=== PATIENT | female | born 1985 | race Two or more races ===

== ENCOUNTER 2017-06-21 07:03 | Inpatient (IN) | payer OTHER ==
[~2017-06-21] VITALS: Ht 162.6 cm; Wt 83.5 kg
[2017-06-21] MEDS ORDERED: ONDA8TAB1 PO (08:29)
[2017-06-21] MEDS ORDERED: TRAM50TA1 PO (08:29)
[2017-06-21] MEDS ORDERED: BUPIVACAINE-MPF 0.25% 30 ML VIAL INJ ONE (10:48)
[2017-06-21] MEDS ORDERED: PROPOFOL 200 MG/20 ML VIAL IV ONE (11:01)
[2017-06-21] MEDS ORDERED: DESFLURANE 240 ML BTL INH ONE (11:01)
[2017-06-21] MEDS ORDERED: LIDOCAINE 2% 100 MG/5 ML SYR IVP ONE (11:01)
[2017-06-21] MEDS ORDERED: GLYCOPYRROLATE 0.2 MG/ML VIAL ONE (11:01)
[2017-06-21] MEDS ORDERED: NEOSTIGMINE 1:1000 10 MG/10 ML VIAL ONE (11:01)
[2017-06-21] MEDS ORDERED: DEXAMETHASONE 4 MG/ML VIAL ONE (11:01)
[2017-06-21] MEDS ORDERED: ONDANSETRON 4 MG/2 ML VIAL ONE (11:01)
[2017-06-21] MEDS ORDERED: fentaNYL 0.05 MG/ML VIAL ONE ×2 (11:03→13:18)
[2017-06-21] MEDS ORDERED: MIDAZOLAM 2 MG/2 ML VIAL ONE (11:03)
[2017-06-21] MEDS ORDERED: ONDANSETRON 4 MG/2 ML VIAL IVP PRN (11:30)
[2017-06-21] MEDS ORDERED: HYDROmorphone PFS 2 MG/ML SYR IVP PRN ×2 (11:30→15:05)
[2017-06-21] MEDS: HYDROmorphone PFS 2 MG/ML SYR ONE ×6 (14:10→15:00)
[2017-06-21] MEDS ORDERED: MORPHINE SULFATE 4 MG/ML SYR IV PRN (14:15)
[2017-06-21] MEDS ORDERED: KETOROLAC 30 MG/ML VIAL ONE (14:57)
[2017-06-21] MEDS ORDERED: KETOROLAC 30 MG/ML VIAL IVP SCH (15:23)
--- NOTE | 2017-06-21 15:30 | NUR ---
PT ARRIVED ON THE UNIT WITH 2 OR NURSES. PT IS AWAKE AND ORIENTED. ACCOMPANIED BY SPOUSE. INTRODUCED MYSELF AND UPDATED THE BOARD. PER PT, PT IS IN A LOT OF PAIN. PER RONALD, OR NURSE PT HAD 6 DOSES OF DILAUDID. NO MORE, LET IT TAKE AFFECT. V/S STABLE. WILL CONTINUE WITH POST OP V/S. SKIN- 4 INCISIONS COVERED W/ DRESSING. WAQAS DRAIN, DRAINING SANGUINOUS 3ML IN BULB. FAMILY AT BEDSIDE. PT THIRSTY, GAVE ICE CHIPS AND APPLE JUICE. WILL CONTINUE TO MONITOR PT.
[2017-06-21 16:00] VITALS: BP 105/58
[2017-06-21 16:15] VITALS: BP 108/74
--- NOTE | 2017-06-21 16:22 | NUR ---
PT V/S GOOD. WHEN PT FALLS ASLEEP, O2 SAT DROPS FROM 98% TO 78-80%. ADMINISTERED NC 3L. WILL CONTINUE TO MONITOR PT.
[2017-06-21 16:45] VITALS: BP 111/70
[2017-06-21] MEDS: NACL 0.9% 1,000 ML IV SCH (16:59)
[2017-06-21] MEDS: ONDANSETRON 4 MG/2 ML VIAL IV PRN (17:00)
[2017-06-21 17:15] VITALS: BP 110/71
--- NOTE | 2017-06-21 18:52 | NUR ---
PT C/O PAIN. CAN'T REALLY EXPLAIN BUT SHE SAYS IT FEELS LIKE STOMACH AND HER HEART IS SLOWLY "CLOSING DOWN". SHE SAYS IT'S HARD TO BREATHE. HER O2 SAT IS 100% ON 4L OF O2. HER VITAL SIGNS IS NORMAL. WAQAS DRAIN IS DRAINING WELL. I WILL EMPTY BEFORE SHIFT IS OVER. FAMILY IS WITH HER. ASKED THEM TO LEAVE TO LET HER REST. COME BACK TOMORROW.
--- NOTE | 2017-06-21 19:30 | NUR ---
RECEIVED BEDSIDE REPORT FROM DAY SHIFT NURSE PERLA RN, PT STABLE, NO DISTRESS NOTED, IV TO R AC 20 G RUNNING NS @ 100 ML/HR, DRESSING CLEAN DRY AND INTACT, WAQAS DRAIN DRAINING SEROSANGUINOUS, PT ON 4LPM O2 VIA NC, INITIAL ASSESSMENT DONE, ALL SAFETY PRECAUTION MET, CALL LIGHT WITHIN REACH, FAMILY BY BEDSIDE, WILL CONTINUE TO MONITOR.
--- NOTE | 2017-06-21 20:47 | NUR ---
PT AMBULATES TO THE RESTROOM, TOLERATED WELL, BUT WAS UNABLE TO VOID, PT WENT BACK TO BED, RESTING, CALL LIGHT WITHIN REACH, STABLE, CALL LIGHT WITHIN REACH.
[2017-06-21] MEDS: MORPHINE SULFATE 2 MG/ML SYR IVP PRN (23:30)
[2017-06-22] VITALS: BP 110/68
[2017-06-22] MEDS: NACL 0.9% 1,000 ML IV SCH (00:13)
[2017-06-22] MEDS: HYDROmorphone PFS 2 MG/ML SYR IVP PRN ×4 (03:18→18:08)
--- NOTE | 2017-06-22 03:18 | NUR ---
PT C/O OF PAIN 10/10 ON THE ABD, PAIN MEDICATION GIVEN, PT TOLERATED WELL, NO DISTRESS NOTED, CALL LIGHT WITHIN REACH, WILL CONTINUE TO MONITOR.
[2017-06-22 08:00] VITALS: BP 110/72
[2017-06-22 10:54] LABS: ALBUMIN 2.9 g/dL (3.4-5.0); ANION GAP 14.7 (8-16); CARBON DIOXIDE 22.4 mmol/L (21-32); CREATININE 0.7 mg/dL (0.6-1.3); POTASSIUM 4.1 mmol/L (3.5-5.1)
[2017-06-22 13:51] LABS: HEMOGLOBIN 13.1 g/dL (12.0-16.0); RED BLOOD CELL COUNT(AUTO) 4.51 MIL/uL (4.20-5.40); WHITE BLOOD COUNT (AUTO) 13.3 K/uL (4.8-10.8)
[2017-06-22 13:52] LABS: MEAN CORPUSCULAR HEMOGLOBIN 29 pg (27-31); MEAN CORPUSCULAR HGB CONC 33 g/dL (33-37); MEAN CORPUSCULAR VOLUME 89 fL (80-94); PLATELET COUNT (AUTO) 275 K/uL (140-450); RED CELL DISTRIBUTION WIDTH 12.4 % (11.6-13.7)
[2017-06-22 13:53] LABS: LYMPHOCYTES % (MANUAL) 14 % (20-46); MONOCYTES % (MANUAL) 7 % (5-12)
--- NOTE | 2017-06-22 13:55 | NUR ---
Due to inconsistent information that patient give me during screen and patient stating that he did not have a place to live. I contact patient's board and care at [facility] (assisted living). I Spoke to Roselyn (facility staff) about patient information. According to Roselyn the facility its just a board and care that can provide a clean room, 3 meals a day, and assist residents with providing them, with medications management but its only limited and can not provide any higher level of care for the residents that are in that need. Per Roselyn patient has been in and out of the hospitals and last time patient discharged he appeared as if he had walk out of hospital with IV and tubes still as of (Patient had run away from the hospital). Per Roselyn he is ill and seems as he is in need of a higher level of care, that they are not able to provide. Per Roselyn they no longer want patient to return and if he do go back they will bring patient back to the hospital. I explained to Roselyn that social work and case management will make every attempt to assist patient with level of care that he needs, however in his case patient may be limited with options and he also has the right to accept or declined the help. I assure that resources and services will be provided for patient to get the assistance he needs. Roselyn agreed and ended call.
[2017-06-22] MEDS ORDERED: HYDROmorphone PFS 2 MG/ML SYR ONE ×2 (14:37→18:02)
--- NOTE | 2017-06-22 14:42 | NUR ---
CM NOTE COMPUTER AND PHONE LINES WERE DOWN. WRITTEN CLINICAL UPDATE FAXED TO [facility] [phone] MARQUITA # [phone].
[2017-06-22 16:00] VITALS: BP 116/68
--- NOTE | 2017-06-22 19:10 | NUR ---
ENDORSED PATIENT TO MACHINE BUFFER RN FOR CONTINUITY OF CARE. PATIENT IN STABLE CONDITION.
--- NOTE | 2017-06-22 19:11 | NUR ---
RECEIVED REPORT FROM DAY NURSE, PT IN STABLE CONDITION. NO S/S OF DISTRESS NOTED. PT AAOX4, ON 4L O2 VIA NC, IV TO R AC 20G, PATENT AND INTACT. PT HAS 4 INCISIONS ON THE ABD AREA, DRESSINGS DRY AND INTACT. WAQAS DRAINING SEROSANGUINEOUS DRAINAGE. INITIAL ASSESSMENT COMPLETED. PLAN OF CARE DISCUSSED WITH PT AT THE BEDSIDE, BOARD UPDATED, VERBALIZED UNDERSTANDING. ALL SAFETY PRECAUTIONS MET, CALL LIGHT WITHIN REACH, WILL CONTINUE TO MONITOR.
[2017-06-22 20:00] VITALS: BP 108/68
--- NOTE | 2017-06-22 21:45 | NUR ---
PT C/O ITCHINESS AROUND WAQAS DRAIN SITE, TOOK OFF DRESSING, NO REDNESS OR SWELLING NOTED. SITE DRY, CLEAN AND INTACT. SMALL AMOUNT OF SEROSANGUINEOUS DRAINAGE NOTED ON DRESSING. DRESSING CHANGED. PT TOLERATED WELL AND STATED IT FEELS BETTER NOW
[2017-06-22] MEDS ORDERED: MORPHINE SULFATE 2 MG/ML SYR ONE (22:30)
[2017-06-22] MEDS ORDERED: ONDANSETRON 4 MG/2 ML VIAL ONE (22:30)
[2017-06-22] MEDS: ONDANSETRON 4 MG/2 ML VIAL IV PRN (22:37)
[2017-06-22] MEDS: MORPHINE SULFATE 2 MG/ML SYR IVP PRN (22:37)
[2017-06-23] MEDS ORDERED: HYDROmorphone PFS 2 MG/ML SYR ONE (03:49)
[2017-06-23] MEDS: HYDROmorphone PFS 2 MG/ML SYR IVP PRN (04:01)
--- NOTE | 2017-06-23 06:09 | NUR ---
OUTPUT FROM WAQAS DRAIN 20 ML SEROSANGUINEOUS FLUID
[2017-06-23] MEDS: NACL 0.9% 1,000 ML IV SCH (06:13)
--- NOTE | 2017-06-23 07:05 | NUR ---
PT C/O OXYGEN MAKING HER NOSE FEEL DRY, PT DOES NOT WANT OXYGEN ON. 02 SAT:96% ON ROOM AIR, GAVE PT LUBRICANT JELLY FOR NOSE AND WARM COMPRESS FOR ABDOMEN
--- NOTE | 2017-06-23 07:43 | NUR ---
RECEIVED REPORT FROM TICKER INSTALLER RN. PATIENT IS AAOX4, RESPIRATORY EFFORT IS EVEN AND UNLABORED. PATIENT IS ON ROOM AIR. NO SIGNS AND SYMPTOMS OF ACUTE DISTRESS NOTED AT THIS TIME. HAS IV TO RIGHT AC 20G SALINE LOCK AT THIS TIME. SITE IS CLEAN, DRY, PATENT AND INTACT. HAS URBINA CATHETER DRAINING TO GRAVITY. HAS FOUR ABDOMINAL INCISIONS, SITES HAVE DRESSINGS, CLEAN, DRY AND INTACT. HAS WAQAS DRAIN, SMALL AMOUNT OF SEROSANGUINEOUS FLUID NOTED. DISCUSSED PLAN OF CARE WITH PATIENT AND SHE VERBALIZED UNDERSTANDING. BED IN LOWEST POSITION, SIDE RAILS UP X2, CALL LIGHT PLACED WITHIN REACH. WILL CONTINUE TO MONITOR.
--- NOTE | 2017-06-23 07:43 | NUR ---
REPORT GIVEN TO DAY NURSE FOR CONTINUITY OF CARE, PT IN STABLE CONDITION. NO S/S OF OF DISTRESS NOTED.
[2017-06-23 08:00] VITALS: BP 98/59
--- NOTE | 2017-06-23 08:59 | NUR ---
PATIENT HAS BEEN SCREENED AND CATEGORIZED LOW NUTRITION RISK. PATIENT WILL BE SEEN WITHIN 7 DAYS OF ADMISSION. 06/27/[address]
[2017-06-23] MEDS: ENOXAPARIN 40 MG/0.4 ML SYR SUBQ SCH (09:00)
--- NOTE | 2017-06-23 10:00 | NUR ---
REMOVED URBINA CATHETER PER ORDER. EKG, TROPONIN ALSO ORDERED
--- NOTE | 2017-06-23 11:36 | NUR ---
DR BAILEY ORDERED TO DO A BLADDER SCAN POST VOID, IF BLADDER IS 250 ML OR MORE TO DO A STRAIGHT CATH EVERY 4 HOURS. WILL FOLLOW THROUGH WITH ORDERS.
--- NOTE | 2017-06-23 11:40 | NUR ---
DR RUIZ STUDENT SURGEONS CAME AND TALKED TO ME STATING THAT PER DR KING'S STANDPOINT PATIENT IS READY TO GO HOME. WILL AWAIT ANY ORDERS.
--- NOTE | 2017-06-23 12:00 | NUR ---
ENCOURAGING PATIENT TO AMBULATE. TO GO AND SIT ON THE TOILET TO TRY TO EMPTY HER BLADDER. SHE STATES THAT SHE WANTS TO BUT DOESN'T FEEL LIKE ANYTHING WILL COME OUT.
--- NOTE | 2017-06-23 12:01 | NUR ---
CM NOTE CONCURRENT REVIEW FAXED TO [facility] [phone] MARQUITA # [phone].
--- NOTE | 2017-06-23 12:50 | NUR ---
GAVE PATIENT DILAUDID, 0.5ML, IV AND FLUSHED. WILL CONTINUE TO MONITOR.
--- NOTE | 2017-06-23 14:10 | NUR ---
AT THE BEDSIDE, REMOVED WAQAS DRAIN. PATIENT STATED SHE HAD SOME PAIN. WILL CONTINUE TO MONITOR.
--- NOTE | 2017-06-23 15:10 | NUR ---
ENCOURAGED PATIENT TO GET UP AND AMBULATE. ALSO TO SIT ON THE TOILET. PATIENT GOT UP FROM BED AND AMBULATED WITH FAMILY AND CHARGE NURSE.
[2017-06-23 16:00] VITALS: BP 104/69
--- NOTE | 2017-06-23 16:30 | NUR ---
PATIENT AMBULATING DOWN THE HALLWAY WITH FAMILY. TOLERATING WELL.
--- NOTE | 2017-06-23 17:23 | NUR ---
ASKED PATIENT HOW SHE WAS FEELING, SHE SAID OK, THAT SHE HAS SOME PAIN. ASKED IF SHE IS READY TO GO HOME, SHE STATED THAT SHE IS STILL HAVING A HARD TIME TRYING TO EAT, AND FEELS BLOATED. WILL CONTINUE TO MONITOR.
[2017-06-23] MEDS: HYDROcodone/APAP 5/325 MG 1 TAB TAB PO PRN ×2 (17:54→22:07)
[2017-06-23] MEDS: ONDANSETRON 4 MG/2 ML VIAL IV PRN (17:54)
[2017-06-23] MEDS ORDERED: PANTOPRAZOLE 40 MG INJ VIAL IVP SCH (18:25)
--- NOTE | 2017-06-23 19:20 | NUR ---
PATIENT IS CURRENTLY AWAKE ALERT RESTING IN BED IVF NOT INFUSING AT THIS TIME BUT WAS RECONNECTED AGAIN TO IVF BY AM SHIFT NURSE. PATIENT HAS TOTAL OF 4 ABD INCISIONS 3 COVERED WITH BANDAIDS AND THE OTHER ONE WAS COVERED WITH A 4X4 GAUZE, PATIENT HAS NO MORE WAQAS IT HAS BEEN REMOVED. PATIENT ENCOURAGED TO WALK AND ENCOURAGED TO DRINK PLENTY OF FLUIDS.PATIENT VERBALIZES UNDERSTANDING PATIENT STATES,"I HAVE BEEN WALKING IN THE MORNING." PATIENT ENCOURAGED TO WALK SHE CAN TOLERATED ONLY.PATIENT VERBALIZES UNDERSTANDING. PATIENT HAS SCD'S OFF AT THIS TIME BUT I WILL PUT THEM ON LATER. PATIENT IS AWARE THAT A NEW IV HAS TO BE RESTARTED.PATIENT HAS NO COMPLAINS OF PAIN OR NAUSEA PATIENT STATES SHE ONLY HAS SOME PAIN WHEN URINATING BUT I WILL GIVE HER CRANBERRY JUICE AND WILL CHECK THE PATIENT WITH BLADDER SCANNER IF SHE FEELS SHE IS RETAINING URINE. CALL LIGHT WITHIN REACH WILL CONTINUE TO MONITOR.
--- NOTE | 2017-06-23 19:20 | NUR ---
ENDORSED PATIENT TO CENTRIFUGAL DRIER OPERATOR NURSE FOR CONTINUITY OF CARE. PATIENT IN STABLE CONDITION.
[2017-06-23 20:00] VITALS: BP 104/60
--- NOTE | 2017-06-23 20:00 | NUR ---
Patient's Plan of Care was discussed and reviewed with CUSTOMS AND IMMIGRATION OFFICER: CATIE NOLAND
--- NOTE | 2017-06-23 20:03 | NUR ---
PATIENT AGREES TO HAVE A NEW IV LINE RESTARTED. I ATTEMPTED TO RESTART AN IV LINE TO HER RT FOREARM BUT PATIENT IS SO ANXIOUS I GOT GOOD BLOOD RETURN AND NORMAL SALINE IS FLUSHING WELL, BUT PATIENT IS SAYING,"PLEASE TAKE IT OFF IT HURTS PLEASE REMOVE IT." SO I WENT AHEAD AND I REMOVED THE IV LINE. THEN PATIENT STATES,"I DON'T WANT ANY MORE IV LINE." I EXPLAINED TO THE PATIENT THE REASON SHE NEEDS TO HAVE AN IV ACCESS AND ALSO SO SHE CAN GET IV MEDICATION IF SHE NEEDS IT.PATIENT STATES,"THAT'S OK I WILL CONTINUE TO DRINK PLENTY OF FLUIDS AND I WILL TAKE THE PAIN PILL FOR PAIN." PATIENT REFUSES IV REINSERTION. I TOLD THE PATIENT THAT IF SHE CHANGES HER MIND I CAN RESTART HER IV LINE AGAIN. PATIENT VERBALIZES UNDERSTANDING BUT,FOR NOW PATIENT REFUSED IV REINSERTION.
--- NOTE | 2017-06-23 22:07 | NUR ---
PATIENT IS CURRENTLY COMPLAINING OF PAIN WAS MEDICATED FOR MODERATE PAIN. PATIENT IS CURRENTLY RESTING IN BED AND ALSO REQUESTED TO HAVE WARM BLANKETS.PATIENT NEEDS MET WILL CONTINUE TO MONITOR.
[2017-06-24 00:34] VITALS: BP 96/56
--- NOTE | 2017-06-24 00:38 | NUR ---
PATIENT IS CURRENTLY RESTING IN BED DENIES PAIN VITALS TAKEN CURRENTLY WNL. PATIENT IS WEARING SCD'S TO PREVENT DVT AND EDUCATION GIVEN TO THE PATIENT AND SHE VERBALIZES UNDERSTANDING. CALL LIGHT WITHIN REACH.
[2017-06-24] MEDS: NACL 0.9% 1,000 ML IV SCH ×2 (01:18→01:36)
--- NOTE | 2017-06-24 02:44 | NUR ---
PATIENT SLEEPING WELL IN BED WILL CONTINUE TO MONITOR.
--- NOTE | 2017-06-24 04:40 | NUR ---
PATIENT IS CURRENTLY RESTING IN BED PATIENT CONTINUES TO BE ENCOURAGED TO DRINK FLUIDS AND CRANBERRY JUICE. PATIENT STATES,"I HAVE BEEN VOIDING BUT I'M IN PAIN." I CHECKED THE PATIENT WITH THE BLADDER SCANNER AND I SCANNED HER BLADER AND THE MOST IT SHOWS IS 34ML I SCANNED IN DIFFERENT ANGLES. NUTRITION PARTNERBRTET SINCLAIR WITNESSED WHEN I WAS SCANNING HER BLADDER AND SAW THAT PATIENT ISN'T RETAINING A LOT OF URINE IN HER BLADDER SO SUSY WEST WENT AHEAD AND PALPATED THE PATIENT'S BLADDER AND SAID IT WAS SOFT. PAIN MEDICATION NOT AVAILABLE IN EITHER UNIT FIRE BOAT ENGINEER PRANAV INFORMED HE SAID HE WILL BRING THE MEDICATION [place]. WILL CONTINUE TO MONITOR.
[2017-06-24] MEDS ORDERED: HYDROcodone/APAP 5/325 MG 1 TAB TAB ONE (04:55)
[2017-06-24] MEDS: HYDROcodone/APAP 5/325 MG 1 TAB TAB PO PRN ×4 (05:25→20:16)
[2017-06-24] MEDS ORDERED: PANTOPRAZOLE 40 MG TABEC PO SCH (06:30)
--- NOTE | 2017-06-24 06:37 | NUR ---
PATIENT SLEEPING IN NO DISTRESS. CALL LIGHT WITHIN REACH.
--- NOTE | 2017-06-24 07:27 | NUR ---
PATIENT STABLE SLEEPING REPORT ENDORSED TO SUSY ELDER AT BEDSIDE SHE WILL RESUME CARE.
--- NOTE | 2017-06-24 07:45 | NUR ---
PT RECEIVED FROM [facility] NURSE, PT IN BED AWAKE ALERT AND ORIENTED X4. ABLE TO MAKE NEEDS KNOWN WELL. NO RESP DISTRESS NOTED. PT C/O ABD PAIN 9/10 WITH MOVEMENT. PT RECEIVED NORCO AT 0525 AND SHE IS NOT DUE FOR PAIN MED AGAIN TILL 924. PT HAS NO IV ACCESS. OFFERED TO PLACE A NEW IV FOR HER SO THAT SHE CAN RECEIVED IVP PAIN MED BUT SHE IS NOT SURE IF SHE WANTS A NEW IV. PT STATES THAT IS WILL AGREE TO IV ACCESS ONLY IN THE AC. ABD INCISIONS REMAINS INTACT. NO BLEEDING OR OLD BLOOD STAIN PRESENT. V/S STABLE.
[2017-06-24 08:00] VITALS: BP 110/69
[2017-06-24] MEDS: ENOXAPARIN 40 MG/0.4 ML SYR SUBQ SCH (08:30)
--- NOTE | 2017-06-24 08:49 | NUR ---
PT HAS BEEN SCREENED AND CATEGORIZED MODERATE NUTIRITON RISK. PT WILL BE SEEN WITHIN 3-5 DAYS OF ADMISSION. 06/24/17-06/26/[address]
--- NOTE | 2017-06-24 10:55 | NUR ---
NORCO 1 TAB PO GIVEN FOR ABD PAIN 02/20. PT IN BED SLEEPING CALMLY. NO ACUTE DISTRESS OR CONDITION NOTED.
[2017-06-24] MEDS ORDERED: ACET-5629 PO (13:01)
--- NOTE | 2017-06-24 13:37 | NUR ---
CM NOTE CONCURRENT REVIEW FAXED TO [facility] [phone] MARQUITA # [phone].
--- NOTE | 2017-06-24 15:24 | NUR ---
PT IN BED SLEEPING COMFORTABLY. ABLE TO AROUSE VIA NAME. ORDERS TO DC HOME ENTERED IN THE COMPUTER. PT STATES THAT HER WORKS IN [place] AND HE DETS OFF AT 1900. PT HAS NO OTHER RIDE BESIDE HER . NO DISTRESS NOTED. PT STATES THAT USUALLY HAVE CONSTIPATION. SHE HSD NOT HAD A BM SINCE ADMISSION. PRUNE JUICE OFFERED. V/S STABLE.
--- NOTE | 2017-06-24 16:19 | NUR ---
NORCO 1 TAB PO GIVEN FOR ABD INCISIONAL PAIN 02/20. PT IS GIVEN IS AND EDUCATED ON HOW TO USE IT AND THE IMPORTANCE OF USING IT. PT IS VERY GUARDED. PT IS ABLE TO USE IS UP TO 1000ML. PT IS ENCOURAGED TO AMBULATE MORE IN THE HALLWAY AND SIT UP IN THE CHAIR TO PREVENT PNEUMONIA. EDUCATION ON S/S OF INFECTION, F/U WITH MD, TAKING DAILY SHOWERS INSTRUCTED BY DR KING, TAKING PAIN MED NEEDED PER PRESCRIPTION, TO RETURN TO ED IF SIGNS OF INFECTION OR SOB OCCURS. VERBAL UNDERSTANDING RECEIVED BACK FROM PT.
[2017-06-24 18:16] VITALS: BP 118/72
--- NOTE | 2017-06-24 19:01 | NUR ---
PT IN BED AWAKE ALERT AND CALM. ALL DC INTRUCTION PROVIDED TO PT INCLUDING VERBAL PRINTED MATERIAL AND PRESCRIPTION. PT IS IN HER ROOM WAITING FOR HER TO PICK HER UP
--- NOTE | 2017-06-24 19:02 | NUR ---
PATIENT IS CURRENTLY AWAKE ALERT RESTING IN BED PATIENT STATES SHE GOT HER DISCHARGE INSTRUCTIONS AND SHE IS WAITING FOR HER SIGNIFICANT OTHER SO HE CAN TAKE HER HOME.
--- NOTE | 2017-06-24 20:00 | NUR ---
Patient's Plan of Care was discussed and reviewed with SOLAR SALES MANAGER: CATIE NOLAND
--- NOTE | 2017-06-24 20:23 | NUR ---
PATIENT TOOK HER INCENTIVE SPIROMETER AND I EXPLAINED TO THE PATIENT THAT ITS VERY IMPORTANT FOR HER TO TAKE IT HOME AND DO SOME BREATHING EXERCISES AT HOME AND SHE VERBALIZES UNDERSTANDING.I ALSO EDUCATED HER ON THE IMPORTANCE TO AMBULATE AND DRINK FLUIDS.PATIENT VERBALIZES UNDERSTANDING.
--- NOTE | 2017-06-24 20:25 | NUR ---
PATIENT HAS ALL DISCHARGE INSTRUCTIONS AND PRESCRIPTION AND WAS REMINDED THAT SHE NEEDS TO MAKE A FOLLOW UP APPOINTMENT ON TUESDAY.PATIENT DRESSED HAS NO IV ACCESS,PATIENT VERBALIZES UNDERSTANDING IN REGARDS TO DISCHARGE INSTRUCTIONS AND SAID MORNING NURSE ALSO GAVE HER VERBAL INSTRUCTION.SIGNIFICANT OTHER CAME AND IS TAKING THE PATIENT HOME IN A CAR.PATIENT HAS ALL HER BELONGINGS AND WAS WHEELED OUT TO HER CAR IN A WHEEL CHAIR. PATIENT WAS DISCHARGED HOME SITE SUPERVISING TECHNICAL OPERATOR MICHAEL AWARE PATIENT WAS DISCHARGED.
== END 2017-06-24 20:25 | disposition home or self-care (01) | DRG 263 ==
LOC: MDS 07:03 → MMU 07:04 → MTU 14:13 → MDS 14:13 → MTU 15:31
PROVIDERS: ADMIT Surgery; ATTEND Surgery
PROC: 0FT44ZZ Resection of Gallbladder, Percutaneous Endoscopic Approach (ICD-10-PCS; principal; 2017-06-21 08:50)
DX: K80.12 Calculus of gallbladder with acute and chronic cholecystitis without obstruction (principal); K25.9 Gastric ulcer, unspecified as acute or chronic, without hemorrhage or perforation; E78.5 Hyperlipidemia, unspecified; E66.9 Obesity, unspecified; R33.9 Retention of urine, unspecified; K29.70 Gastritis, unspecified, without bleeding; K21.0 Gastro-esophageal reflux disease with esophagitis; Z68.31 Body mass index [BMI] 31.0-31.9, adult
CPT/HCPCS: 36415; 71045; 80053; 82374; 84484; 85025; 86886; 86900; 86901; 87081; 88304; 93005; 93970; C1758; C9113; J0690; J1100; J1170; J1650; J1885; J2001; J2250; J2270; J2405; J2704; J2710; J3010; J3490; J7030; J7060; Q0092